=== PATIENT | female | born 1980 | race Caucasian/White ===

== ENCOUNTER 2018-08-22 06:14 | Inpatient (IN) ==
[2018-08-22] MEDS ORDERED: Metoprolol Tartrate 25 MG Tablet PO ONE (06:51)
[2018-08-22] MEDS ORDERED: Chlorhexidine Gluconate 2% 1 Pack (2 Cloths) TOPICAL ONE (06:51)
[2018-08-22] MEDS ORDERED: ceFAZolin 2 GM Premix Inj 2 GM/50 ML PIGGYBACK IV.SIG SCH (07:00)
[2018-08-22] MEDS ORDERED: Sodium Chlor 0.9% Inj 500 ML IV.SIG SCH (07:00)
[2018-08-22] MEDS ORDERED: Bupivacaine/Epinephrine Inj 0.25% 50 ML Vial ONE (07:22)
[2018-08-22] MEDS ORDERED: Glycopyrrolate Inj 1 MG/5 ML Syringe IV.PUSH ONE (08:02)
[2018-08-22] MEDS ORDERED: Lidocaine PF 1% Inj 5 ML Syringe OTHER ONE (08:02)
[2018-08-22] MEDS ORDERED: Phenylephrine/NS 1000 MCG/10ML Syringe IV.PUSH ONE (08:02)
[2018-08-22] MEDS ORDERED: Neostigmine Inj 5 MG/5 ML Syringe IV.PUSH ONE (08:02)
--- NOTE | 2018-08-22 09:43 | P.OP ---
- Preoperative Diagnosis (1) Recurrent incisional hernia (2) Ventral hernia - Postoperative Diagnosis (1) Recurrent incisional hernia (2) Ventral hernia Date of procedure: 08/22/18 Procedure: Laparoscopic repair of recurrent incisional hernia and ventral hernia Anesthesia: FREDY Surgeon: Benito Kapoor MD Hydration Plant Operator: Noel Pradahn Hydration Plant Operator: Dr. Noel Pradhan was present from beginning to the end of the case assisting in all portions of the procedure. It was necessary to have this individual in the room to assist in the above surgical procedure. The surgical procedure was assisted by Dr. Noel Pradhan. Dr. Noel Pradhan presence was necessary throughout the case for appropriate retraction, dissection, visualization, and resection of the important anatomical structures during the surgical procedure. Dr. Noel Pradhan was assisting throughout the entirety of the operation. The skill set of Dr. Noel Pradhan is medically and surgically necessary to safely complete the surgical procedure. During the surgical case the operating room ophthalmic surgical assistant was working instrument table and passing instruments to the attending surgeon and Dr. Noel Pradhan. Dr. Noel Pradhan was directly assisting the operating surgeon and involved in the technical aspects of the surgical case. Estimated blood loss (mL): 20 Pathology: none sent Operation and Findings: Patient taken to the operating room placed under general anesthesia She is given preoperative antibiotics A timeout is done after prepping her abdomen and draping. The hernia is that is palpated this above the umbilicus. We placed a port in the right upper quadrant by direct cutdown technique ligate making a 1 cm incision dissecting down to the fascia incised blue trochars placed the abdomen is insufflated 15 mmHg. Another working ports placed in the right lower quadrant 5 mm port. Camera was introduced we are able to visualize the recurrent hernia is very small. Above this there are 2 more ventral hernias. They are both in the midline. Incarcerated preperitoneal fat is reduced from the defect using the harmonic scalpel we free up some adhesions along the anterior abdominal wall up to the falciform ligament using the harmonic scalpel. The fascia was checked down to where she had her I do not see any hernias in the midline down to the pubic tubercle. We measure the combined defect where we get adequate closure where a piece of [place]it mesh is to be placed. The measurement obtained is about 12 cm x 8 cm. The [place]it mesh is in taken and cut the size. Sutures are placed at the 4 sides of the [place]it suture. The mesh was then placed in the abdomen through the 10 mm port. The mesh was unrolled we then secure the [place]it suture to the fascia superiorly and inferiorly first and then to the left side and right side where it is fairly taunt. We had lowered the pressure to 8 mmHg during the placement of the mesh and secured it to the fascial layer by grasping the sutures that were placed in the mesh with the [place]it suture grasper. Once the mesh was secured in place we then take the tacking device and secured circumferentially around the mesh to the anterior abdominal wall. Once this was accomplished we then closed the 10 mm port site after irrigating the abdomen. The port site at the fascial layer was closed with a 0 Vicryl and the skin is closed with a 4-0 Vicryl Steri-Strips applied sterile bandage applied patient taught procedure well
[2018-08-22] MEDS ORDERED: Promethazine 25 MG Supp RECTAL PRN (09:46)
[2018-08-22] MEDS ORDERED: Post-op Orders (for Pharmacy) OTHER ONE (09:46)
[2018-08-22] MEDS ORDERED: Bisacodyl 10 MG Supp RECTAL PRN (09:46)
[2018-08-22] MEDS ORDERED: HYDROmorphone PF Inj 0.5 MG/0.5 ML Syringe ONE ×4 (09:49→16:45)
[2018-08-22] MEDS ORDERED: fentaNYL Citrate Inj 100 MCG/2 ML Ampul ONE ×2 (09:55→09:58)
[2018-08-22] MEDS ORDERED: Morphine Inj 4 MG/ML Vial ONE (09:55)
[2018-08-22] MEDS ORDERED: Ketorolac Inj 30 MG/ML (IVP) Vial ONE (09:59)
[2018-08-22] MEDS ORDERED: *morphine SULFATE 4 MG/ML PERIprocedure ONLY ONE (10:03)
[2018-08-22] MEDS ORDERED: Ketorolac Inj 30 MG/ML (IVP) Vial IV.PUSH ONE ×2 (11:00→18:30)
[2018-08-22] MEDS: HYDROmorphone PF Inj 0.5 MG/0.5 ML Syringe IV.PUSH PRN ×2 (16:53→21:05)
[2018-08-22] MEDS: Senna/Docusate Sodium 8.6/50 MG Tablet PO SCH (21:22)
[2018-08-22] MEDS: Zolpidem Tartrate 5 MG Tablet PO PRN (22:24)
[2018-08-23] MEDS: HYDROmorphone PF Inj 0.5 MG/0.5 ML Syringe IV.PUSH PRN ×6 (00:55→23:39)
[2018-08-23] MEDS ORDERED: MINOCYCLINE PO SCH (09:00)
[2018-08-23] MEDS ORDERED: Non-Formulary Drug (Omega 3-Dha-Epa-Fish Oil [Fish Oil] 1 CAP) PO SCH (09:00)
[2018-08-23] MEDS: Senna/Docusate Sodium 8.6/50 MG Tablet PO SCH ×2 (09:04→20:38)
[2018-08-23] MEDS: Calcium/Vitamin D 250/125 MG Tablet PO SCH (09:04)
[2018-08-23] MEDS: oxyCODONE/Acetaminophen 10/325 Tablet PO PRN ×3 (12:12→20:37)
--- NOTE | 2018-08-23 12:46 | P.PNGS ---
Subjective Patient reports: still having pain, pain is less Interval history: Resting in bed Painful Ate breakfast Physical Exam Vital signs: Vital Signs 08/22/18 13:00 08/22/18 14:00 08/22/18 15:00 Temperature Pulse Rate 82 73 78 Respiratory Rate 14 16 16 Blood Pressure 90/50 L 97/56 L 96/52 L Pulse Oximetry 97 98 98 08/22/18 16:00 08/22/18 17:00 08/22/18 17:59 Temperature Pulse Rate 72 73 Respiratory Rate 16 16 16 Blood Pressure 99/62 L 96/51 L Pulse Oximetry 98 96 08/22/18 18:00 08/22/18 20:00 08/22/18 22:18 Temperature 97.9 F 98.1 F Pulse Rate 74 66 Respiratory Rate 16 18 20 Blood Pressure 96/56 L 104/54 L Pulse Oximetry 99 99 08/23/18 00:00 08/23/18 04:00 08/23/18 04:36 Temperature 98.0 F 98.1 F Pulse Rate 82 71 Respiratory Rate 18 18 20 Blood Pressure 103/59 L 98/76 L Pulse Oximetry 100 98 08/23/18 06:59 08/23/18 08:00 Temperature 97.6 F Pulse Rate 69 Respiratory Rate 20 17 Blood Pressure 100/60 Pulse Oximetry 97 Intake & Output 08/22/18 08/23/18 08/23/18 18:59 06:59 18:59 Intake Total 2448 / 2448 900 / 900 100 / 100 Output Total 20 1000 / 1000 Balance 2428 / 2428 -100 / -100 100 / 100 Weight 76.5 kg Intake: IV 898 / 898 100 / 100 100 / 100 LR 1000 mL Inj 1,000 ML @ 100 748 / 748 mls/hr IV.CONT .Q10H KURT Rx#: [id number] Ofirmev Inj 1,000 mg In 100 ml 100 / 100 100 / 100 100 / 100 @ 400 mls/hr IV.SIG Q6H KURT Rx# :[id number] Ancef 2 GM Premix Inj 2 gm In 50 / 50 50 ml @ 100 mls/hr IV.SIG [employer] COORDINATOR KURT Rx#:[id number] Oral 150 / 150 800 / 800 Anesthesia Amount 900 / 900 Other 500 / 500 Output: Urine 1000 / 1000 Estimated Blood Loss Other: # Voids 1 2 Narrative: Alert and awake Abd: soft; incision c/d/i; binder in place; tender Assessment and Plan - Assessment (1) Status post laparoscopic hernia repair Code(s): Z98.890 - Other specified postprocedural states; Z87.19 - Personal history of other diseases of the digestive system Status: Acute (2) Recurrent incisional hernia Code(s): K43.2 - Incisional hernia without obstruction or gangrene Status: Acute - Plan 37 year old female POD1 lap repair of recurrent hernia and ventral hernia -Adjusted pain regimen -Regular diet as tolerated -DC IVF -OOB as tolerated -DC home when pain better - Attending Attestation NOTE FOR SURGICAL ATTENDING, DR. JD ORTIZ Patient still having pain requiring IV pain medication Complains of swollen vagina and tenderness Dr. Hal Mak was on the floor and he was able to examine the patient vagina and felt that there was no pathology I believe he is having pain because she is fairly active lady and fairly muscular and the surgery irritated the muscles I will add a muscle relaxer and Ambien tonight Hopefully she will be able to be discharged tomorrow depending on her pain status I agree with above assessment and plan. The exam, history, and the medical decision-making described in the above note were completed with the assistance of the mid-level provider. I reviewed and agree with the findings presented. I attest that I had a [id number] encounter with the patient on the same day, and personally performed and documented my assessment and findings in the medical record. The following services were provided during this hospital visit: Chart data review, vital sign assessments/reviewing monitor data Review of consultations notes if present. Medication orders/review and/or management Ordering and/or reviewing lab tests Ordering and/or interpreting/reviewing x-rays and/or diagnostic studies Care of the patient and discussion of the patient with the care team Documentation time To help prompt me to consider important information that might be impacting today's encounter and assessment, Information from prior notes written by myself or my colleagues may have been "brought forward/copy and pasted" into today's note.
[2018-08-24] MEDS: Zolpidem Tartrate 5 MG Tablet PO PRN (00:24)
[2018-08-24] MEDS: oxyCODONE/Acetaminophen 10/325 Tablet PO PRN ×5 (01:50→20:20)
[2018-08-24] MEDS: HYDROmorphone PF Inj 0.5 MG/0.5 ML Syringe IV.PUSH PRN ×5 (04:37→22:29)
[2018-08-24] MEDS: Calcium/Vitamin D 250/125 MG Tablet PO SCH (09:29)
[2018-08-24] MEDS: Senna/Docusate Sodium 8.6/50 MG Tablet PO SCH ×2 (09:30→20:19)
--- NOTE | 2018-08-24 11:21 | P.PNGS ---
Subjective Patient reports: no new complaints, flatus, no bowel movement Interval history: DAILY PROGRESS NOTE FOR SURGICAL ATTENDING, DR. JD ORTIZ postop day 2 from laparoscopic repair of ventral hernia Pain is decreased but still present Tolerated some p.o. some flatus no bowel activity Physical Exam Vital signs: Vital Signs 08/23/18 12:00 08/23/18 16:00 08/23/18 20:00 Temperature 97.9 F 98.1 F 97.9 F Pulse Rate 74 72 73 Respiratory Rate 18 19 20 Blood Pressure 111/56 L 100/60 104/59 L Pulse Oximetry 99 95 100 08/24/18 00:00 08/24/18 01:52 08/24/18 02:24 Temperature 98 F Pulse Rate 67 Respiratory Rate 20 18 Blood Pressure 98/62 L 103/58 L Pulse Oximetry 98 08/24/18 04:00 08/24/18 06:15 08/24/18 08:00 Temperature 98.4 F 98.1 F Pulse Rate 71 70 Respiratory Rate 20 20 17 Blood Pressure 104/59 L 94/51 L Pulse Oximetry 99 96 Intake & Output 08/23/18 08/24/18 08/24/18 18:59 06:59 18:59 Intake Total 1100 / 1100 1220 / 1220 Balance 1100 / 1100 1220 / 1220 Weight 72.57 kg Intake: IV 1100 / 1100 500 / 500 Ofirmev Inj 1,000 mg In 100 ml 100 / 100 @ 400 mls/hr IV.SIG Q6H KURT Rx# :[id number] Oral 720 / 720 Other: # Voids 2 Narrative: Alert and awake Abd: soft; incision c/d/i; binder in place; postop tender positive bowel sounds tender around mesh sutures and tacks Assessment and Plan - Assessment (1) Status post laparoscopic hernia repair Code(s): Z98.890 - Other specified postprocedural states; Z87.19 - Personal history of other diseases of the digestive system Status: Acute (2) Recurrent incisional hernia Code(s): K43.2 - Incisional hernia without obstruction or gangrene Status: Acute - Plan 37 year old female POD2 lap repair of recurrent hernia and ventral hernia -Adjusted pain regimen -Regular diet as tolerated -DC IVF -OOB as tolerated Added Flexeril Check CBC Not ready to be discharged yet -DC home when pain better - Attending Attestation NOTE FOR SURGICAL ATTENDING, DR. JD ORTIZ I attest that I had a [id number] encounter with the patient on the same day, and personally performed and documented my assessment and findings in the medical record. The following services were provided during this hospital visit: Chart data review, vital sign assessments/reviewing monitor data Review of consultations notes if present. Medication orders/review and/or management Ordering and/or reviewing lab tests Ordering and/or interpreting/reviewing x-rays and/or diagnostic studies Care of the patient and discussion of the patient with the care team Documentation time To help prompt me to consider important information that might be impacting today's encounter and assessment, Information from prior notes written by myself or my colleagues may have been "brought forward/copy and pasted" into today's note.
[2018-08-24 13:55] LABS: Baso % (Auto) 0.4 % (0.0-2.0); Eos # (Auto) 0.1 th/mm3 (0.0-0.4); Hematocrit 33.1 % (35.0-46.0); Hemoglobin 11.3 gm/dL (11.6-15.3); Lymph # (Auto) 1.5 th/mm3 (1.0-4.8); Lymph % (Auto) 38.2 % (9.0-44.0); Mean Corpuscular HGB Conc 34.2 % (32.0-36.0); Mean Corpuscular Hemoglobin 32.1 pg (27.0-34.0); Mean Platelet Volume 7.3 fL (7.0-11.0); Mono # (Auto) 0.3 th/mm3 (0.0-0.9); Mono % (Auto) 7.1 % (0.0-8.0); Neut % (Auto) 52.3 % (16.0-70.0); Platelet Count 183 th/mm3 (150-450); Red Blood Count 3.52 mil/mm3 (4.00-5.30); Red Cell Distribution Width 12.8 % (11.6-17.2); White Blood Count 3.9 th/mm3 (4.0-11.0)
[2018-08-25] MEDS: oxyCODONE/Acetaminophen 10/325 Tablet PO PRN ×4 (00:13→13:57)
[2018-08-25] MEDS: HYDROmorphone PF Inj 0.5 MG/0.5 ML Syringe IV.PUSH PRN ×2 (02:16→06:24)
[2018-08-25 08:10] VITALS: RESP 16
[2018-08-25] MEDS: Senna/Docusate Sodium 8.6/50 MG Tablet PO SCH (09:06)
[2018-08-25] MEDS: Calcium/Vitamin D 250/125 MG Tablet PO SCH (09:06)
[2018-08-25 12:50] VITALS: BP 91/52; PULSE 75; TEMP 97.9; O2SAT 93
--- NOTE | 2018-08-25 14:58 | P.PNGS ---
Subjective Patient reports: no new complaints, feels better, flatus, no bowel movement Physical Exam Vital signs: Vital Signs 08/24/18 16:00 08/24/18 20:00 08/24/18 20:19 Temperature 97.7 F 97.7 F Pulse Rate 67 73 Respiratory Rate 17 20 18 Blood Pressure 90/52 L 97/52 L Pulse Oximetry 96 99 08/24/18 21:12 08/24/18 23:16 08/25/18 00:00 Temperature 98.5 F Pulse Rate 72 Respiratory Rate 18 18 20 Blood Pressure 106/59 L Pulse Oximetry 100 08/25/18 00:37 08/25/18 03:00 08/25/18 04:00 Temperature 99.8 F H Pulse Rate 76 Respiratory Rate 16 16 20 Blood Pressure 98/56 L Pulse Oximetry 97 08/25/18 05:04 08/25/18 08:00 08/25/18 12:00 Temperature 98.1 F 97.9 F Pulse Rate 64 75 Respiratory Rate 18 16 16 Blood Pressure 95/50 L 91/52 L Pulse Oximetry 96 93 L Intake & Output 08/24/18 08/25/18 08/25/18 18:59 06:59 18:59 Intake Total 1250 / 1250 Balance 1250 / 1250 Weight 72.4 kg Intake: Oral 1250 / 1250 Other: # Voids 4 - Routine Abdominal Exam Present: soft (incisional tenderness) Results - Labs 08/24/18 13:29 Laboratory Results - last 24 hr 08/24/18 22:13 POC Glucose 82 Assessment and Plan - Assessment (1) Status post laparoscopic hernia repair Code(s): Z98.890 - Other specified postprocedural states; Z87.19 - Personal history of other diseases of the digestive system Status: Acute (2) Recurrent incisional hernia Code(s): K43.2 - Incisional hernia without obstruction or gangrene Status: Acute - Plan 37 year old female POD3 lap repair of recurrent hernia and ventral hernia pain better -Regular diet as tolerated -OOB as tolerated Flexeril dvt ppx -DC home
== END 2018-08-25 17:22 | disposition home or self-care (01) | DRG 355 ==
LOC: HSDC 06:14 → HSDI 06:14 → N07 18:35
PROVIDERS: ADMIT Surgery; ATTEND Surgery
CPT/HCPCS: 82948; 82962; 84702; 85025; 96361; 96374; 96375; 96376; C1781; G0378; J0131; J0690; J1100; J1170; J1200; J1885; J2060; J2250; J2270; J2370; J2405; J2704; J2710; J3010; J7120